=== PATIENT | female | born 1965 | race Caucasian/White ===

== ENCOUNTER 2016-07-20 12:02 | Outpatient (CLI) | payer OTHER ==
--- NOTE | 2016-07-20 12:44 | DIAGNOSTIC IMAGING REPORT ---
PROCEDURE: XR CERVICAL SPINE 2 OR 3 VIEW INDICATION: CERVICAL DISC DISEASE TECHNIQUE: Three views. COMPARISON: None. FINDINGS: Normal alignment without fracture. Mild degenerative changes. Straightening of the cervical spine. Odontoid, lateral masses of C1 and prevertebral soft tissues are normal. IMPRESSION: 1. Straightening of the cervical spine suggestive of muscular spasm. 2. Mild degenerative changes.
--- NOTE | 2016-07-20 12:46 | DIAGNOSTIC IMAGING REPORT ---
PROCEDURE: XR LUMBAR SPINE 2 OR 3 VIEWS INDICATION: CERVICAL DISC DISEASE TECHNIQUE: Three views. COMPARISON: None. FINDINGS: Moderate one L3-4 anterolisthesis with mild spur formation. No fracture. Mild L3-4 to moderate L4-5 disc space narrowing. Soft tissues are unremarkable. IMPRESSION: 1. No acute changes 2. Grade 1 L3-4 anterolisthesis 3. L3-4 and L4-5 disc space narrowing
== END 2016-07-20 23:00 ==
LOC: XR SRH 12:02
DX: M50.30 Other cervical disc degeneration, unspecified cervical region (principal)